=== PATIENT | female | born 1980 | race American Indian/Alaskan Native ===

== ENCOUNTER 2016-12-03 06:29 | Emergency (ER) | payer SELFPAY ==
[2016-12-03 07:27] VITALS: BP 160/121
[2016-12-03 07:55] LABS: Basophils % (Auto) 1.4 % (0.0-1.8); Hematocrit 38.4 % (30.3-42.9); Hemoglobin 12.2 gm/dl (10.1-14.3); Mean Corpuscular HGB Conc 32 % (30-34); Mean Corpuscular Hemoglobin 27 pg (28-32); Mean Corpuscular Volume 84 fl (79-97); Platelet Count 264 K/mm3 (140-440); Red Blood Count 4.57 M/mm3 (3.65-5.03); Red Cell Distribution Width 15.2 % (13.2-15.2); White Blood Count 6.5 K/mm3 (4.5-11.0)
[2016-12-03 08:11] LABS: Anion Gap 18 mmol/L; Blood Urea Nitrogen 5 mg/dL (7-17); Calcium 8.3 mg/dL (8.4-10.2); Carbon Dioxide 22 mmol/L (22-30); Glucose 100 mg/dL (65-100); Potassium 3.8 mmol/L (3.6-5.0); Sodium 140 mmol/L (137-145)
--- NOTE | 2016-12-04 06:18 | ED Elopement Review ---
ED Pt Elopement review - Results review Lab results: Laboratory Tests 12/03/16 12/03/16 07:41 07:41 WBC 6.5 RBC 4.57 Hgb 12.2 Hct 38.4 MCV 84 MCH 27 L MCHC 32 RDW 15.2 Plt Count 264 Lymph % (Auto) 23.9 [place] % (Auto) 7.3 Eos % (Auto) 1.0 Baso % (Auto) 1.4 Lymph # 1.6 [place] # 0.5 Eos # 0.1 Baso # 0.1 Seg Neutrophils % 66.4 Seg Neutrophils # 4.3 Sodium 140 Potassium 3.8 Chloride 104.0 Carbon Dioxide 22 Anion Gap 18 BUN 5 L Creatinine 1.0 Estimated GFR > 60 BUN/Creatinine Ratio 5.00 Glucose 100 Calcium 8.3 L Troponin T < 0.010 - Call Back decision Pt Call Back Decision: No action required
== END 2016-12-03 07:45 | disposition left against medical advice (07) ==
LOC: ED 06:29
DX: R06.02 Shortness of breath (principal); R07.89 Other chest pain; Z53.21 Procedure and treatment not carried out due to patient leaving prior to being seen by health care provider
CPT/HCPCS: 36415; 80048; 84484; 85025; 93005; 93010

== ENCOUNTER 2017-07-04 07:04 | Emergency (ER) | payer SELFPAY ==
--- NOTE | 2017-07-04 07:41 | XRay Report ---
ROUTINE CHEST, TWO VIEWS: HISTORY: Shortness of breath. Compared to 02/21/17. Mild cardiomegaly and pulmonary venous congestion are identified. The lungs are clear. No consolidation, pleural effusion or pneumothorax. The bony structures are grossly intact. IMPRESSION: Mild cardiomegaly and pulmonary venous congestion but no CHF. No significant change since AP chest dated 02/21/17.
[2017-07-04 08:01] LABS: Anion Gap 19 mmol/L; Blood Urea Nitrogen 10 mg/dL (7-17); Calcium 8.8 mg/dL (8.4-10.2); Carbon Dioxide 20 mmol/L (22-30); Glucose 104 mg/dL (65-100); Potassium 4.1 mmol/L (3.6-5.0); Sodium 140 mmol/L (137-145)
[2017-07-04 08:02] LABS: Basophils % (Auto) 1.1 % (0.0-1.8); Eosinophils % (Auto) 1.1 % (0.0-4.3); Mean Corpuscular HGB Conc 33 % (30-34); Mean Corpuscular Hemoglobin 27 pg (28-32); Mean Corpuscular Volume 84 fl (79-97); Platelet Count 278 K/mm3 (140-440); Red Blood Count 4.79 M/mm3 (3.65-5.03); Red Cell Distribution Width 17.5 % (13.2-15.2)
[2017-07-04] MEDS ORDERED: LASIX PO ONE (09:34)
[2017-07-04] MEDS ORDERED: DUONEB *Not for PRN Use IH ONE (09:34)
--- NOTE | 2017-07-04 09:36 | Emergency Department Report ---
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 She also noticed that her ankles were swelling. She has been out of her Lasix for the past 2 weeks, which she takes at 40 mg twice daily. She does not have a primary care physician but does have a maintenance truck driver , Dr. Wu, who is been out for the past 2 weeks and will be out for 2 weeks more. Currently she says she is feeling improved without any previous medication or treatments taken. She denies any chest pain, fever, nausea, vomiting. She also admits that she has some history of anxiety and that could' ve been a factor in her shortness of breath. No recent travel or sick contacts at home. ED Past Medical Hx - Past Medical History Previous Medical History?: Yes Hx Hypertension: Yes Hx Congestive Heart Failure: Yes Hx Psychiatric Treatment: Yes (panic attacks / anxiety) - Surgical History Past Surgical History?: Yes Additional Surgical History: right ovary removed - Social History Smoking Status: Current Every Day Smoker Substance Use Type: Prescribed - Medications Home Medications: Home Medications Medication Instructions Recorded Confirmed Last Taken Type Aspirin EC [Aspirin Enteric Coated 81 mg PO QDAY 02/21/17 02/21/17 02/20/17 History TAB] Metoprolol Tartrate [Lopressor] 100 mg PO BID 02/21/17 02/21/17 02/20/17 History amLODIPine [Norvasc] 5 mg PO DAILY 02/21/17 02/21/17 02/20/17 History Furosemide [Lasix TAB] 40 mg PO BID #40 tablet 07/04/17 Unknown Rx ED Review of Systems ROS: Stated complaint: FINN Other details as noted in HPI Comment: All other systems reviewed and negative Constitutional: denies: chills, fever Eyes: denies: eye pain, eye discharge, vision change ENT: denies: ear pain, throat pain Respiratory: shortness of breath. denies: cough Cardiovascular: edema. denies: chest pain Gastrointestinal: denies: abdominal pain, nausea, diarrhea Genitourinary: denies: urgency, dysuria, discharge Musculoskeletal: denies: back pain, joint swelling, arthralgia Skin: denies: rash, lesions Neurological: denies: headache, weakness, paresthesias Physical Exam - Physical Exam Vital Signs: Vital Signs 07/04/17 07/04/17 07:14 08:06 Temperature 97.6 F Pulse Rate 91 H 82 Respiratory 19 20 Rate Blood Pressure 163/122 Blood Pressure 160/106 [Left] O2 Sat by Pulse 100 98 Oximetry Physical Exam: GENERAL: The patient is well-developed well-nourished. HENT: Normocephalic. Atraumatic. Patient has moist mucous membranes. EYES: Extraocular motions are intact. Pupils equal reactive to light bilaterally. NECK: Supple. Trachea is midline. CHEST/LUNGS: Clear to auscultation. No tachypnea or accessory muscle use. There is no respiratory distress noted. HEART/CARDIOVASCULAR: Regular. There is no tachycardia. There is no gallop rub or murmur. ABDOMEN: Abdomen is soft, nontender. Patient has normal bowel sounds. There is no abdominal distention. Obese habitus. SKIN: Mild nonpitting swelling to the feet and ankles. No skin color change. Skin is warm and dry. NEURO: The patient is awake, alert, and oriented. The patient is cooperative. The patient has no focal neurologic deficits. The patient has normal speech and gait. MUSCULOSKELETAL: There is no tenderness or deformity. There is no limitation range of motion. There is no evidence of acute injury. ED Course Vital Signs 07/04/17 07/04/17 07:14 08:06 Temperature 97.6 F Pulse Rate 91 H 82 Respiratory 19 20 Rate Blood Pressure 163/122 Blood Pressure 160/106 [Left] O2 Sat by Pulse 100 98 Oximetry ED Medical Decision Making - Lab Data Result diagrams: 07/04/17 07:25 07/04/17 07:25 - EKG Data -: EKG Interpreted by Me EKG shows normal: sinus rhythm, axis (left axis deviation), intervals ( prolonged QTC), QRS complexes (incomplete left bundle branch block, LVH) Rate: normal - EKG Data When compared to previous EKG there are: previous EKG unavailable Interpretation: other (sinus rhythm, left axis deviation, LVH, incomplete left bundle branch block) - Radiology Data Radiology results: image reviewed interpreted by me: Chest x-ray shows some mild cardiomegaly and pulmonary vascular congestion. No overt pleural effusion seen. No pneumonia. - Medical Decision Making 36-year-old female presents emergency department with some shortness of breath began earlier this morning around 6 AM. She is also concerned for possible CHF as she has some swelling of the ankles and has been without her Lasix for the past 2 weeks. On physical exam the patient has no signs of any respiratory distress. There is some mild swelling of the foot and ankles. BNP of greater than 2000. Chest x-ray does not show any overt pleural effusions or obvious CHF. She did have an elevated d-dimer but the patient refused CT angiography. She feels very confident that she just needs to be taking her Lasix. The patient understands that there is a potential for a pulmonary embolism and if so it could cause worsening shortness of breath, chest pain, disability or . Despite these risks the patient still refuses the CT angiography and is asking for discharge home. She will be given a refill of her Lasix but will be signing out AGAINST MEDICAL ADVICE. She does understand that she can return to the emergency department at any time if she changes her mind about further evaluation or if she has any acute distress. - Differential Diagnosis CHF, PE, pneumonia, anxiety Critical Care Time: No Critical care attestation.: If time is entered above; I have spent that time in minutes in the direct care of this critically ill patient, excluding procedure time. ED Disposition Clinical Impression: Shortness of breath, Medication refill, Elevated d-dimer Hypertension Qualifiers: Hypertension type: essential hypertension Qualified Code(s): I10 - Essential ( primary) hypertension Disposition: LEFT AGAINST MED ADVICE Is pt being admited?: No Condition: Stable Instructions: Dyspnea (ED), Hypertension (ED) Additional Instructions: Please follow-up with your maintenance truck driver as soon as possible. Return to the emergency department if you change your mind regarding further evaluation of your shortness of breath. Prescriptions: Furosemide [Lasix TAB] 40 mg PO BID #40 tablet Referrals: PRIMARY CAREMD [Primary Care Provider] - [facility] Forms: AMA Form Time of Disposition: 11:40
[2017-07-04 10:24] VITALS: BP 160/114
[2017-07-04] MEDS ORDERED: NACL ONE (11:23)
== END 2017-07-04 12:16 | disposition left against medical advice (07) ==
LOC: ED 07:04
DX: I10 Essential (primary) hypertension (principal); Z76.0 Encounter for issue of repeat prescription; R06.02 Shortness of breath; R79.1 Abnormal coagulation profile; I50.9 Heart failure, unspecified; F41.9 Anxiety disorder, unspecified; F17.200 Nicotine dependence, unspecified, uncomplicated; Z79.82 Long term (current) use of aspirin
CPT/HCPCS: 36415; 71020; 80048; 83880; 84484; 85025; 85379; 93005; 93010; 94640

== ENCOUNTER 2017-07-25 00:02 | Emergency (ER) | payer SELFPAY | END 2017-07-25 01:21 | disposition left against medical advice (07) | LOC: ED 00:02 | DX: F41.0 Panic disorder [episodic paroxysmal anxiety] (principal); I10 Essential (primary) hypertension; Z53.21 Procedure and treatment not carried out due to patient leaving prior to being seen by health care provider ==

== ENCOUNTER 2017-08-31 05:22 | Emergency (ER) | payer SELFPAY ==
[2017-08-31 06:34] LABS: Basophils % (Auto) 0.7 % (0.0-1.8); Eosinophils % (Auto) 0.5 % (0.0-4.3); Hematocrit 40.3 % (30.3-42.9); Hemoglobin 13.2 gm/dl (10.1-14.3); Mean Corpuscular HGB Conc 33 % (30-34); Mean Corpuscular Hemoglobin 29 pg (28-32); Mean Corpuscular Volume 87 fl (79-97); Platelet Count 266 K/mm3 (140-440); Red Blood Count 4.61 M/mm3 (3.65-5.03); Red Cell Distribution Width 15.3 % (13.2-15.2); White Blood Count 6.6 K/mm3 (4.5-11.0)
[2017-08-31 06:52] LABS: Anion Gap 18 mmol/L; BUN/Creatinine Ratio 11; Blood Urea Nitrogen 10 mg/dL (7-17); Calcium 8.5 mg/dL (8.4-10.2); Carbon Dioxide 22 mmol/L (22-30); Chloride 105.3 mmol/L (98-107); Glucose 149 mg/dL (65-100); Potassium 3.5 mmol/L (3.6-5.0); Sodium 142 mmol/L (137-145)
[2017-08-31] MEDS ORDERED: REGLAN IV ONE (09:05)
[2017-08-31] MEDS ORDERED: BENADRYL IV ONE (09:05)
--- NOTE | 2017-08-31 09:06 | Emergency Department Report ---
ED General Adult HPI - General Chief complaint: High BP Stated complaint: DIZZINESS Time Seen by Provider: 08/31/17 08:52 Source: patient, RN notes reviewed, old records reviewed Mode of arrival: Ambulatory Limitations: No Limitations - History of Present Illness Initial comments: This is a 36-year-old female. The patient is previously known to this provider. Patient has a past medical history of obesity, as well as panic attacks, congestive heart failure and hypertension. The patient presents to the ER with a complaint of headache dizziness and visual disturbance. Patient reports that the headache started last night. The headache is not sudden or thunderclap in nature. It did not reach maximal intensity within an hour. It is not the worst headache of her life. She reports that she feels dizzy, and when further asked to clarify, describes the dizziness as a sensation of lightheadedness, and "seeing stars", and "blurry vision." This has been going on since 11:00 last night. There is no chest pain, there is no shortness of breath, there is no weakness, there is no ataxia, there is no abdominal pain, there are no pulmonary embolus or DVT risk factors, and the patient is low risk by well's criteria. -: Gradual Location: head Quality: aching Consistency: constant Improves with: none Worsens with: none Associated Symptoms: headaches, loss of appetite, weakness. denies: confusion, chest pain - Related Data Home Medications Medication Instructions Recorded Confirmed Last Taken Aspirin EC [Aspirin Enteric Coated 81 mg PO QDAY 02/21/17 08/31/17 02/20/17 TAB] Previous Rx's Medication Instructions Recorded Last Taken Type Furosemide [Lasix TAB] 40 mg PO BID #40 tablet 07/04/17 Unknown Rx Allergies Allergy/AdvReac Type Severity Reaction Status Date / Time strawberry Allergy Shortness Verified 12/03/16 07:23 of Breath ED Review of Systems ROS: Stated complaint: DIZZINESS Other details as noted in HPI Constitutional: malaise Eyes: vision change ENT: denies: epistaxis, congestion Respiratory: denies: cough Cardiovascular: denies: chest pain Gastrointestinal: denies: abdominal pain Genitourinary: as per HPI Musculoskeletal: arthralgia Skin: denies: lesions Neurological: headache, weakness. denies: numbness, paresthesias ED Past Medical Hx - Past Medical History Previous Medical History?: Yes Hx Hypertension: Yes Hx Congestive Heart Failure: Yes Hx Psychiatric Treatment: Yes (panic attacks / anxiety) - Surgical History Past Surgical History?: Yes Additional Surgical History: right ovary removed - Social History Smoking Status: Light Tobacco Smoker Substance Use Type: None - Medications Home Medications: Home Medications Medication Instructions Recorded Confirmed Last Taken Type Aspirin EC [Aspirin Enteric Coated 81 mg PO QDAY 02/21/17 08/31/17 02/20/17 History TAB] Furosemide [Lasix TAB] 40 mg PO BID #40 tablet 07/04/17 08/31/17 Unknown Rx ED Physical Exam - General Limitations: No Limitations General appearance: alert, in no apparent distress - Head Head exam: Present: atraumatic, normocephalic - Eye Eye exam: Present: normal appearance, PERRL, EOMI, other (visual acuity is intact to finger counting, color perception, rating at a close distance. Visual acuity is intact to direct complication bilaterally.). Absent: nystagmus - ENT ENT exam: Present: normal exam, normal orophraynx, mucous membranes moist, TM's normal bilaterally, normal external ear exam - Neck Neck exam: Present: normal inspection, full ROM - Respiratory Respiratory exam: Present: normal lung sounds bilaterally. Absent: respiratory distress, wheezes, rales, rhonchi, stridor, chest wall tenderness, accessory muscle use, decreased breath sounds, prolonged expiratory - Cardiovascular Cardiovascular Exam: Present: regular rate, normal rhythm, normal heart sounds. Absent: bradycardia, tachycardia, irregular rhythm, systolic murmur, diastolic murmur, rubs, gallop - GI/Abdominal GI/Abdominal exam: Present: soft, normal bowel sounds. Absent: distended, tenderness, guarding, rebound, rigid, pulsatile mass - Extremities Exam Extremities exam: Present: normal inspection, full ROM, normal capillary refill. Absent: pedal edema, joint swelling, calf tenderness - Back Exam Back exam: Present: normal inspection, full ROM. Absent: tenderness, CVA tenderness (R) - Neurological Exam Neurological exam: Present: alert, oriented X3, normal gait (normal gait. Normal tandem gait. No pass pointing. Negative pronator drift. Normal heel-to -wong.), other (Extraocular movements intact. Tongue midline. No facial droop. Facial sensation intact to light touch in the V1, V2, V3 distribution bilaterally. 5 and 5 strength in 4 extremities.. Sensation is intact to light touch in 4 extremities.). Absent: motor sensory deficit - Psychiatric Psychiatric exam: Present: normal affect, normal mood - Skin Skin exam: Present: warm, dry, intact, normal color. Absent: rash ED Course Vital Signs 08/31/17 08/31/17 08/31/17 05:37 08:47 09:00 Temperature 98.8 F Pulse Rate 99 H 81 83 Respiratory 18 17 15 Rate Blood Pressure 166/104 166/103 O2 Sat by Pulse 100 100 Oximetry 08/31/17 08/31/17 08/31/17 09:15 09:30 09:46 Temperature Pulse Rate 82 85 86 Respiratory 22 14 13 Rate Blood Pressure 159/99 129/99 151/111 O2 Sat by Pulse 99 98 97 Oximetry 08/31/17 08/31/17 08/31/17 10:00 11:24 11:30 Temperature Pulse Rate 81 92 H 89 Respiratory 15 19 21 Rate Blood Pressure 143/101 161/119 159/113 O2 Sat by Pulse 98 99 100 Oximetry 08/31/17 08/31/17 08/31/17 11:45 12:00 12:15 Temperature Pulse Rate 78 75 77 Respiratory 22 26 H 19 Rate Blood Pressure 167/117 162/109 166/112 O2 Sat by Pulse 99 99 99 Oximetry 08/31/17 08/31/17 08/31/17 12:30 12:45 13:00 Temperature Pulse Rate 85 83 81 Respiratory 29 H 14 26 H Rate Blood Pressure 175/120 167/113 165/115 O2 Sat by Pulse 98 100 98 Oximetry 08/31/17 13:15 Temperature Pulse Rate 73 Respiratory 29 H Rate Blood Pressure 158/103 O2 Sat by Pulse 99 Oximetry - Reevaluation(s) Reevaluation #1: 08/31/17 11:11 Differential diagnosis, including but not limited to: Transient ischemic attack , vertebral basilar insufficiency, arrhythmia, structural cardiac disease, carotid disease Assessment and plan: 36-year-old female with nonspecific headache, nonspecific neurologic symptoms. EKG is abnormal unchanged from prior. No pulmonary embolus or DVT risk factors, low risk by well's criteria, perc negative, GCS of 15, NIH score of 0. Headache history not consistent with subarachnoid hemorrhage. The headache is not sudden or thunderclap in nature, and it is not the worse headache of her life, she reports worse headache a few years ago. Laboratory studies unremarkable, visual acuity intact to finger counting, color perception, rating at a close distance on direct confrontation. No obvious visual field cuts on direct confrontation. Given lack of follow-up, abnormal EKG, vascular risk factors, patient to be admitted for further evaluation of near syncope versus transient ischemic attack. Awaiting callback from Hospital physician. Reevaluation #2: 08/31/17 13:12 Dr Brand called back at 1120 and accepted the patient to the medical service ED Medical Decision Making - Lab Data Result diagrams: 08/31/17 05:56 08/31/17 05:56 Vital Signs 08/31/17 08/31/17 05:37 08:47 Temperature 98.8 F Pulse Rate 99 H 81 Respiratory 18 17 Rate Blood Pressure 166/104 O2 Sat by Pulse 100 Oximetry Lab Results 08/31/17 08/31/17 08/31/17 Range/Units 05:56 05:56 09:36 WBC 6.6 (4.5-11.0) K/mm3 RBC 4.61 (3.65-5.03) M/mm3 Hgb 13.2 (10.1-14.3) gm/dl Hct 40.3 (30.3-42.9) % MCV 87 (79-97) fl MCH 29 (28-32) pg MCHC 33 (30-34) % RDW 15.3 H (13.2-15.2) % Plt Count 266 (140-440) K/mm3 Lymph % (Auto) 17.4 (13.4-35.0) % [place] % (Auto) 6.9 (0.0-7.3) % Eos % (Auto) 0.5 (0.0-4.3) % Baso % (Auto) 0.7 (0.0-1.8) % Lymph # 1.1 L (1.2-5.4) K/mm3 [place] # 0.5 (0.0-0.8) K/mm3 Eos # 0.0 (0.0-0.4) K/mm3 Baso # 0.0 (0.0-0.1) K/mm3 Seg Neutrophils % 74.5 H (40.0-70.0) % Seg Neutrophils # 4.9 (1.8-7.7) K/mm3 Sodium 142 (137-145) mmol/L Potassium 3.5 L (3.6-5.0) mmol/L Chloride 105.3 (98-107) mmol/L Carbon Dioxide 22 (22-30) mmol/L Anion Gap 18 mmol/L BUN 10 (7-17) mg/dL Creatinine 0.9 (0.7-1.2) mg/dL Estimated GFR > 60 ml/min BUN/Creatinine Ratio 11 % Glucose 149 H (65-100) mg/dL Calcium 8.5 (8.4-10.2) mg/dL Troponin T < 0.010 (0.00-0.029) ng/mL - EKG Data -: EKG Interpreted by Ca - EKG Data 08/31/17 11:13 Normal sinus, 80 bpm, left ventricular hypertrophy, high left ventricular voltage, not morphologically consistent with ST elevation myocardial infarction , poor R-wave progression, left axis deviation, left anterior fascicular block. Appears unchanged when compared to prior, QTC prolonged - Radiology Data Radiology results: report reviewed, image reviewed Noncontrast CT scan of the brain is negative Critical care attestation.: If time is entered above; I have spent that time in minutes in the direct care of this critically ill patient, excluding procedure time. ED Disposition Clinical Impression: Headache, Visual disturbance Disposition: DC-09 OP ADMIT IP TO THIS HOSP Is pt being admited?: Yes Does the pt Need Aspirin: Yes Condition: Stable Referrals: PRIMARY CARE, [Primary Care Provider] - 3-5 Days
--- NOTE | 2017-08-31 10:38 | Cat Scan Report ---
CT HEAD WITHOUT CONTRAST INDICATION: Headache, blurry vision. COMPARISON: None similar. FINDINGS: Noncontrast head CT demonstrates normal ventricles and sulci without acute or recent infarct, hemorrhage, mass effect or midline shift. No abnormal extra-axial fluid collections. Posterior fossa structures and basilar cisterns appear within normal limits. Symmetric eye globes. Mild left sphenoid sinusitis. Clear remainder imaged paranasal sinuses and mastoid air cells. Intact calvarium. Partially empty sella. Normal overlying scalp soft tissues. Few radiopaque dental material incidentally noted. CONCLUSION: Mild left sphenoid sinusitis and few other findings without acute intracranial CT abnormality, as described. Thank you for the opportunity to participate in this patient's care.
[2017-08-31] MEDS ORDERED: BABY ASPIRIN PO ONE (11:16)
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
[2017-08-31 13:55] VITALS: BP 158/103
== END 2017-08-31 14:00 | disposition admitted as inpatient to this hospital (09) ==
LOC: ED 05:22
DX: R51 Headache (principal); R42 Dizziness and giddiness; H53.9 Unspecified visual disturbance; I11.0 Hypertensive heart disease with heart failure; I50.9 Heart failure, unspecified; F17.210 Nicotine dependence, cigarettes, uncomplicated; Z91.018 Allergy to other foods; Z79.82 Long term (current) use of aspirin
CPT/HCPCS: 36415; 70450; 80048; 84484; 85025; 93005; 93010; 96374; 96375; 99284; J1200; J2765